=== PATIENT | male | born 2000 | race Caucasian/White ===

== ENCOUNTER 2022-12-02 21:16 | Emergency (ER) | payer OTHER ==
[~2022-12-02] VITALS: Ht 182.9 cm; Wt 65.8 kg
[2022-12-02 21:19] VITALS: BP 116/87
== END 2022-12-03 00:53 | disposition home or self-care (01) ==
LOC: ER 21:16
DX: S90.32XA Contusion of left foot, initial encounter (principal); F17.200 Nicotine dependence, unspecified, uncomplicated; W01.10XA Fall on same level from slipping, tripping and stumbling with subsequent striking against unspecified object, initial encounter
CPT/HCPCS: 73650; 99283-25